=== PATIENT | male | born 1995 | race Caucasian/White ===

== ENCOUNTER 2017-05-01 08:33 | Emergency (ER) | payer MEDICAID, OTHER ==
[~2017-05-01] VITALS: Ht 170.2 cm; Wt 113.0 kg
[~2017-05-01 08:33] MED LIST: AMOX875 PO; ANTISOL30 LEFT EAR; CORTIS10A LEFT EAR
[2017-05-01 08:44] VITALS: BP 159/86; PULSE 73; RESP 18; TEMP 98.5; O2SAT 97
[2017-05-01] MEDS ORDERED: AMOX500T PO (09:14)
--- NOTE | 2017-05-01 09:14 | PD ---
HPI Chief Complaint: Cold / Flu Symptoms Time Seen by Provider: 09:04 Travel History International Travel<30 days: No Contact w/Intl Traveler<30days: No Traveled to known affect area: No History of Present Illness HPI 21-year-old male here for evaluation with a or throat and ear pain 7 days. Pain is constant and nonradiating. He denies fever or chills, headache, neck pain, chest pain, shortness of breath, abdominal pain. Symptom severity is mild. No alleviating factors. PFSH Past Medical History Asthma: Yes (FROM TO 8 YEARS NO MEDS IN 2 YEARS) Cardiovascular Problems: No Diminished Hearing: No Genitourinary: No Musculoskeletal: No Neurologic: No Respiratory: No Immunizations Current: Yes Seizures: Yes (FAMILY HISTORY OF SEIZURES NO PREVIOUS SEIZURES FOR HIM) Past Surgical History Appendectomy: Yes Social History Alcohol Use: No Tobacco Use: No Substance Use: No Allergies-Medications (Allergen,Severity, Reaction): Coded Allergies: No Known Allergies (Verified Adverse Reaction, Unknown, 05/01/17) Reported Meds & Prescriptions Reported Meds & Active Scripts Active No Active Prescriptions or Reported Medications Review of Systems Except as stated in HPI: all other systems reviewed are Neg Physical Exam Narrative GENERAL: Well-nourished, well-developed patient. SKIN: Focused skin assessment warm/dry. HEAD: Normocephalic. EYES: No scleral icterus. No injection or drainage. EAR: Right TM erythema, bulging without perforation. No canal swelling. No mastoid tenderness. NECK: Supple, trachea midline. No JVD or lymphadenopathy. CARDIOVASCULAR: Regular rate and rhythm without murmurs, gallops, or rubs. RESPIRATORY: Breath sounds equal bilaterally. No accessory muscle use. Data Data Last Documented VS Vital Signs Date Time Temp Pulse Resp B/P (MAP) Pulse Ox O2 Delivery O2 Flow Rate FiO2 05/01/17 08:44 98.5 73 18 159/86 (110) 97 MDM Medical Decision Making Medical Screen Exam Complete: Yes Emergency Medical Condition: Yes Differential Diagnosis AOM, OE, URI Narrative Course 21-year-old male here for evaluation of sore throat and right ear pain 7 days. Patient's right TM is erythematous and bulging. Patient be treated for acute otitis media. Diagnosis Primary Impression: Otitis media Qualified Codes: H66.90 - Otitis media, unspecified, unspecified ear Referrals: [facility] Amoxicillin (Amoxicillin) 500 Mg Tab 500 MG PO TID for Infection for 10 Days, TAB 0 Refills Prov: Lizett Mayorga 05/01/17 Disposition: 01 DISCHARGE HOME Condition: Stable Lizett Mayorga May 01, 2017 09:14
== END 2017-05-01 09:34 | disposition home or self-care (01) ==
LOC: PHEFT 08:33
DX: H66.91 Otitis media, unspecified, right ear (principal); R07.0 Pain in throat; Z87.09 Personal history of other diseases of the respiratory system
CPT/HCPCS: 99283